=== PATIENT | male | born 1985 | race Caucasian/White ===

== ENCOUNTER 2019-08-01 14:27 | Outpatient (REF) | payer BC, SELFPAY ==
[2019-08-01 21:42] LABS: ALT 53 U/L (16-63); AST 30 U/L (15-37); Albumin 4.6 g/dL (3.4-5.0); Alkaline Phosphatase 60 U/L (46-116); Anion Gap 11.4 mmol/L (3-11); BUN 8 mg/dL (7-18); Bilirubin, Total 0.8 mg/dL (0.2-1.0); CO2 26.6 mmol/L (21.0-32.0); CREATININE 0.97 mg/dL (0.70-1.30); Calcium 9.7 mg/dL (8.5-10.1); Calculated LDL 184 mg/dL; Chloride 102 mmol/L (98-107); Cholesterol 263 mg/dL (50-200); Glucose 94 mg/dL (70-100); HDL Cholesterol 65 mg/dL (40-60); Potassium 4.2 mmol/L (3.5-5.1); Sodium 140 mmol/L (136-145); Total Protein 7.6 g/dL (6.4-8.2); Triglyceride 74 mg/dL (30-150)
[2019-08-04 12:16] LABS: IgA 171 mg/dL (85-499); Interpretation SEE COMMENTS; Tissue Transglutaminase IgA <1.2 U/mL (<4.0)
== END 2019-08-01 14:47 ==
LOC: NCHCN 14:27
PROVIDERS: PCP Internal Medicine; Visit Provider Internal Medicine
DX: M25.50 Pain in unspecified joint (principal); I10 Essential (primary) hypertension
CPT/HCPCS: 80053; 80061; 82784; 83516

== ENCOUNTER 2020-05-16 09:13 | Outpatient (REF) | payer BC, SELFPAY ==
[2020-05-16 20:57] LABS: Anion Gap 11.4 mmol/L (3-11); BUN 14 mg/dL (7-18); CO2 23.6 mmol/L (21.0-32.0); CREATININE 0.93 mg/dL (0.70-1.30); Calcium 9.4 mg/dL (8.5-10.1); Chloride 104 mmol/L (98-107); Glucose 104 mg/dL (74-106); Potassium 4.3 mmol/L (3.5-5.1); Sodium 139 mmol/L (136-145)
== END 2020-05-16 09:33 ==
LOC: NCHCN 09:13
PROVIDERS: PCP Internal Medicine; Visit Provider Internal Medicine
DX: I10 Essential (primary) hypertension (principal)
CPT/HCPCS: 80048

== ENCOUNTER 2020-12-09 11:21 | Outpatient (REF) | payer SELFPAY ==
[2020-12-10 12:36] LABS: COVID-19 RT-PCR UVMMC Result Negative (Negative)
== END 2020-12-09 11:41 ==
LOC: NCHCN 11:21
PROVIDERS: PCP Internal Medicine; Visit Provider Internal Medicine
DX: Z20.822 Contact with and (suspected) exposure to COVID-19 (principal)
CPT/HCPCS: U0003

== ENCOUNTER 2021-05-22 09:39 | Outpatient (REF) | payer OTHER, SELFPAY ==
[2021-05-22 13:45] LABS: BUN 16 mg/dL (7-18); Calcium 9.7 mg/dL (8.5-10.1); Chloride 103 mmol/L (98-107); Glucose 93 mg/dL (74-106); Potassium 3.9 mmol/L (3.5-5.1); Sodium 141 mmol/L (136-145)
== END 2021-05-22 09:40 | disposition home or self-care (01) ==
LOC: NCHCN 09:39
PROVIDERS: PCP Internal Medicine; Visit Provider Internal Medicine
DX: I10 Essential (primary) hypertension (principal); F90.0 Attention-deficit hyperactivity disorder, predominantly inattentive type
CPT/HCPCS: 80048

== ENCOUNTER 2022-12-28 10:55 | Outpatient (REF) | payer OTHER, SELFPAY ==
[2022-12-28 15:41] LABS: Anion Gap 9.8 mmol/L (3-11); BUN 16 mg/dL (7-18); CO2 28.2 mmol/L (21.0-32.0); CREATININE 0.9 mg/dL (0.70-1.30); Calcium 9.5 mg/dL (8.5-10.1); Chloride 101 mmol/L (98-107); Estimated GFR 112.11 (mL/min/1.73m2); Glucose 108 mg/dL (74-106); Potassium 3.7 mmol/L (3.5-5.1); Sodium 139 mmol/L (136-145)
== END 2022-12-28 10:56 | disposition home or self-care (01) ==
LOC: NCHCN 10:55
PROVIDERS: PCP Internal Medicine; Visit Provider Internal Medicine
DX: I10 Essential (primary) hypertension (principal); F90.0 Attention-deficit hyperactivity disorder, predominantly inattentive type; Z00.00 Encounter for general adult medical examination without abnormal findings
CPT/HCPCS: 80048

== ENCOUNTER 2024-04-11 10:50 | Outpatient (REF) | payer OTHER, SELFPAY ==
[2024-04-11 15:28] LABS: HCT 42.7 % (40.0-50.0); MCH 29.6 pg (27.0-33.0); MCHC 35.1 % (32.0-36.0); MCV 84 fL (80-95); MPV 10.5 fL (8.0-11.0); Platelet Count 288 10^3/uL (130-400); RBC 5.07 10^6/uL (4.36-5.78); RDW 11.5 % (11.8-14.1); RDW-SD 35.1 fL; WBC 4.96 10^3/uL (4.4-10.8)
[2024-04-11 15:34] LABS: Anion Gap 8.8 mmol/L (3-11); BUN 17 mg/dL (7-18); CO2 28.2 mmol/L (21.0-32.0); CREATININE 0.9 mg/dL (0.70-1.30); Calcium 9.1 mg/dL (8.5-10.1); Chloride 103 mmol/L (98-107); Estimated GFR 110.73 (mL/min/1.73m2); Glucose 99 mg/dL (74-106); Potassium 3.8 mmol/L (3.5-5.1); Sodium 140 mmol/L (136-145)
== END 2024-04-11 10:51 | disposition home or self-care (01) ==
LOC: NCHCN 10:50
PROVIDERS: PCP Internal Medicine; Visit Provider Family Medicine
DX: Z00.00 Encounter for general adult medical examination without abnormal findings (principal); I10 Essential (primary) hypertension
CPT/HCPCS: 80048; 85027

== ENCOUNTER 2024-06-27 15:58 | Emergency (ER) | payer OTHER, SELFPAY ==
[2024-06-27 15:59] VITALS: BP 141/92; PULSE 103; RESP 16; TEMP 36.8; O2SAT 97
--- NOTE | 2024-06-27 16:15 | DI.RAD_ITS ---
Exam(s) XR CHEST 2V PA LATERAL EXAM: XR CHEST 2V PA LATERAL CLINICAL HISTORY: cough, crackles RLL TECHNIQUE: 2D digital imaging was performed of the chest. Two images were obtained. PA and lateral views were obtained. COMPARISON: CR CHEST 2 VIEWS PA,LAT from 06/11/2014 FINDINGS: MEDIASTINUM: Normal. HEART: Normal. PULMONARY VASCULATURE: Normal. LUNGS: There is a right lower lobe infiltrate suspicious for pneumonia. The left lung is clear. PLEURAL SPACE: No pleural effusion or pneumothorax. BONE:Within normal limits for the patient's age. OTHER FINDINGS:Normal. IMPRESSION: Right lower lobe pneumonia. DATA REPOSITORY: RADIATION DOSE DELIVERED:
--- NOTE | 2024-06-27 16:26 | ED.GENADUL_ITS ---
Discharge Plan Disposition Patient Disposition: Home Condition: Good Discharge Details Clinical Impression: Pneumonia Primary Care Provider: Faisal Espinoza ED Provider: Edie Dorsey Home Meds and New Rx's Prescriptions: New amoxicillin-pot clavulanate 875-125 mg tablet 1 tab PO BID 7 Days Qty: 14 0RF benzonatate 200 mg capsule 200 mg PO TID PRNQty: 10 0RF Discharge Instructions Instructions: Pneumonia, Adult (DC) Additional Instructions: Your exam, history and x-ray are all concerning for a pneumonia. Likely bacterial. Please encourage hydration. May use Tylenol and ibuprofen as needed for discomfort or fevers. Please take the antibiotics as prescribed. Even if symptoms improve, please take the entire course. Also prescribed you a cough suppressant, you may take this as needed, please take as directed on the packaging. If you develop any shortness of breath, difficulty breathing, chest pain or other new/worsening symptom please seek care urgently once again. Otherwise, please follow-up with primary care provider in 2 weeks for reevaluation. Stand Alone Forms: Work Release Referrals: Denis Cordon MD [ NON-[facility] STAFF PHYSICIAN] - [facility] General Date/Time Provider Initiated Documentation: 06/27/24 15:58 . Limitations to Documentation: no limitations . Information obtained by: patient and RN notes reviewed . History of Present Illness 39 year old M presents to the emergency department with the chief complaint of cough, congestion, fever, runny nose, described as moderate, Quality is described as other (not endorsing pain), Patient started experiencing this day(s) (5) and it has been constant. No relieving factors improve symptom(s), No exacerbating factors reported . Patient notes cough, diaphoresis, fever/chills, headaches (initially had GORDON) and shortness of breath (associates with coughing fits); denies chest pain, loss of appetite, nausea/vomiting and rash. Patient did receive the following treatments prior to arrival, none Related Data Home Medications ?Medication ?Instructions ?Recorded ?Confirmed amoxicillin 875 mg-potassium 1 tab PO BID 7 days #14 tabs 06/27/24 clavulanate 125 mg tablet benzonatate 200 mg capsule 200 mg PO TID PRN #10 caps 06/27/24 Previous Rx's ?Medication ?Instructions ?Recorded amoxicillin 875 mg-potassium 1 tab PO BID 7 days #14 tabs 06/27/24 clavulanate 125 mg tablet benzonatate 200 mg capsule 200 mg PO TID PRN #10 caps 06/27/24 Allergies Allergy/AdvReac Type Severity Reaction Status Date / Time shellfish derived Allergy Unknown Verified 06/27/24 16:02 General Stated Complaint: Fever SANDRA: 4 Review of Systems Constitutional Constitutional: Reports as per HPI and Denies headache(s) Eyes Eyes: Reports as per HPI, Denies eye discharge and Denies irritation ENT Ears, Nose, Mouth, and Throat: Reports as per HPI and Denies headache(s) Cardiovascular Cardiovascular: Reports as per HPI, Denies chest pain and Denies dyspnea Respiratory Respiratory: Reports as per HPI and Denies dyspnea Gastrointestinal Gastrointestinal: Reports as per HPI, Denies abdominal pain, Denies nausea and Denies vomiting Integumentary/Breasts Skin/Breast: Reports as per HPI and Denies rash Neurologic Neurologic: Reports as per HPI and Denies headache(s) Exam Const General: cooperative, healthy appearing, comfortable, no acute distress, well developed and well groomed Nutritional Appearance: average body habitus and well nourished Orientation: alert and awake [facility] Head: normal to inspection, normocephalic and atraumatic Ears: hearing grossly normal bilaterally, external ears normal and TM's normal bilaterally General nose exam: external nose normal and nares normal Face and sinus: normal facial exam, sinuses nontender and face symmetric Mouth: oral mucosae normal, lip normal, tongue normal, oropharynx normal and moist mucous membranes Teeth and gingiva: dentition normal Throat: posterior oropharynx normal, tonsils normal and uvula midline Eyes General: appearance normal, both eyes and all related structures Neck Neck: normal visual inspection, full ROM, no lymphadenopathy and no meningeal signs Resp Effort & Inspection: normal respiratory effort, able to speak in complete sentences and no respiratory distress Auscultation: crackles on the right in the lower lung mathews, no rales, no rhonchi and wheezes expiratory wheezes and right lower Cardio Rate: regular rate Rhythm: regular rhythm Heart Sounds: S1 normal and S2 normal Skin General skin exam: no rashes or lesions noted Neuro General: patient alert and patient awake Cognition: normal cognition Speech: speech normal Gait: normal gait Psych Appearance: grossly normal and well kempt Mental Status: mental status grossly normal Speech and Movement: speech and movement normal Course Vital Signs Vital signs: Vital Signs Temperature 36.8 C 06/27/24 15:59 Pulse 103 H 06/27/24 15:59 Respiratory Rate 16 06/27/24 15:59 Blood Pressure 141/92 H 06/27/24 15:59 Pulse Oximetry 97 06/27/24 15:59 Temperature 36.8 C 06/27/24 15:59 Temperature Source Oral 06/27/24 15:59 Pulse 103 H 06/27/24 15:59 Respiratory Rate 16 06/27/24 15:59 Respiratory Effort Normal 06/27/24 16:03 Blood Pressure 141/92 H 06/27/24 15:59 Blood Pressure Position Sitting 06/27/24 15:59 Pulse Oximetry 97 06/27/24 15:59 Oxygen Delivery Method Room Air 06/27/24 15:59 Oxygen Flow Rate 0 06/27/24 15:59 Pain Level 0 06/27/24 15:59 Medical Decision Making Patient is a pleasant otherwise healthy 39-year-old male presenting today with chief complaint of flulike symptoms. He reports that he began having cough, headache, fever, congestion about 5 days ago. Symptoms have remained fairly consistent. Says that he did initially have higher fevers as well as diarrhea and those 2 symptoms have both subsided. States that the cough is quite bothersome and can make it difficult for him to sleep. Feels that he has been hearing unusual respiratory sounds. States that he can cough quite violently which can make it difficult for him to catch his breath. No history of asthma, smoking or other respiratory issues. On exam, patient appears nontoxic. He is resting comfortably no acute distress. He is hemodynamically stable. He has crackles in the right lower lobe as well as a faint expiratory wheeze. His lungs are otherwise clear. Normal HEENT exam. Will screen for RSV, flu, COVID. Will give Tylenol X-ray reviewed by myself, concerning for right lower lobe pneumonia which does correlate with the patient's clinical presentation. Will begin on antibiotics. Discussed plan with the patient who is in agreement. We discussed risk/benefits, return precautions and follow-up with primary care. Will give work note at patient request. X-ray viewed by radiologist MEDIASTINUM: Normal. HEART: Normal. PULMONARY VASCULATURE: Normal. LUNGS: There is a right lower lobe infiltrate suspicious for pneumonia. The left lung is clear. PLEURAL SPACE: No pleural effusion or pneumothorax. BONE:Within normal limits for the patient's age. OTHER FINDINGS:Normal. IMPRESSION: Right lower lobe pneumonia. Patient started on Augmentin as well as Tessalon Perles as needed. Return precautions discussed. All his questions and concerns were addressed and he is in agreement this plan. Quality:SDOH Health Related Social Needs: No Data to Display PFSH All Active Problems (Updated 06/27/24 @ 17:19 by JOSI Lares) Pneumonia (Acute) Social History Smoking risk assessment performed?: No
[2024-06-27] MEDS: Acetaminophen 500 MG TAB 1000 MG PO (16:37)
== END 2024-06-27 17:41 | disposition home or self-care (01) ==
PROVIDERS: Emergency Provider Physician Assistant; PCP Internal Medicine
DX: J18.9 Pneumonia, unspecified organism (principal)
CPT/HCPCS: 87426; 99283; 71046

== ENCOUNTER 2025-04-18 22:19 | Outpatient (REF) | payer OTHER, SELFPAY ==
[2025-04-18 21:43] LABS: Anion Gap 6.6 mmol/L (3-11); BUN 19 mg/dL (7-18); CO2 32.4 mmol/L (21.0-32.0); CREATININE 1.3 mg/dL (0.70-1.30); Calcium 9.5 mg/dL (8.5-10.1); Chloride 104 mmol/L (98-107); Estimated GFR 70.78 (mL/min/1.73m2); Glucose 94 mg/dL (74-106); Sodium 143 mmol/L (136-145)
== END 2025-04-18 22:20 | disposition home or self-care (01) ==
LOC: NCHCN 22:19
PROVIDERS: PCP Internal Medicine; Visit Provider Family Medicine
DX: I10 Essential (primary) hypertension (principal)
CPT/HCPCS: 80048

== ENCOUNTER 2025-04-23 11:29 | Outpatient (REF) | payer OTHER, SELFPAY ==
--- NOTE | 2025-04-23 09:15 | SKI_PTH ---
PATIENT: Pineda Ariza LOC: [facility] U#:[id number] AGE/SX: 40/M ROOM: RE04/23/[address]: Denis Cordon : 1985 BED: DIS: 04/23/2025 SPEC #: [id number] RECD: 04/23/25 16:55 STATUS: FREDI RERaymond #: [id number] SHAWN: 04/23/25 09:[address]: Denis Cordon DEPT: Surgical Specimen RECD BY: Karo Hoskins ENTERED: 04/23/25 16:56 SP TYPE: ESTEBAN WILLS DR: Faisal Espinoza Tissues: 1 - SKIN BIOPSY(SHAVE/PUNCH) Procedures: SKIN LEVEL 4 Comments: [id number]
== END 2025-04-23 11:30 | disposition home or self-care (01) ==
LOC: LBN 11:29
PROVIDERS: PCP Internal Medicine; Visit Provider Family Medicine
DX: D18.01 Hemangioma of skin and subcutaneous tissue (principal)
CPT/HCPCS: 88305